=== PATIENT | male | born 1940 | race Two or more races ===

== ENCOUNTER → 2020-11-17 | Outpatient (CLI) | payer MEDICARE, BC ==
[~2020-11-17] MED LIST: ALLO100T PO; APIX2.5T MT; HYDR-4134 PO; LOSA100T32 PO; NEBI5TAB3 PO; OXYC-662 MT; TAMS-11 PO; TORS100T16 PO
== END | disposition home or self-care (01) ==
LOC: LAB 10:21
PROVIDERS: ATTEND Specialist
DX: Z01.812 Encounter for preprocedural laboratory examination (principal); R05 Cough; Z20.822 Contact with and (suspected) exposure to COVID-19
CPT/HCPCS: 87426

== ENCOUNTER → 2020-11-18 | Day surgery (SDC) | payer MEDICARE, BC ==
[~2020-11-18] VITALS: Ht 182.9 cm; Wt 69.9 kg
[~2020-11-18] MED LIST changes: +ASPIRIN/SOD BICARB/CITRIC ACID 324MG TAB EFF ONE; +FENTANYL CITRATE/PF 50MCG/ML 2ML VIAL ONE; +FENTANYL CITRATE/PF 50MCG/ML 5ML VIAL ONE; +HEPARIN SODIUM 1,000 UNIT/1ML VIAL IV ONE; +IODIXANOL 320MG/ML 200ML BOTTLE ONE; +LIDOCAINE HCL 1% 20ML VIAL (Pyxis) INJ ONE; +MIDAZOLAM HCL 2 MG/2 ML VIAL ONE; +NICARDIPINE 100MCG/ML 10ML VIAL (CATH LAB) IV ONE; +NITROGLYCERIN 50MCG/ML 10ML VIAL (CATH LAB) IV ONE
== END | disposition home or self-care (01) ==
LOC: CCL 09:27
PROVIDERS: ATTEND Specialist
DX: I25.10 Atherosclerotic heart disease of native coronary artery without angina pectoris (principal); Z79.899 Other long term (current) drug therapy; Z88.1 Allergy status to other antibiotic agents; Z88.8 Allergy status to other drugs, medicaments and biological substances; Z98.890 Other specified postprocedural states
CPT/HCPCS: 93005; 93458; C1769; C1887; C1893; J1644; J2250; J3010; J3490; Q9967

== ENCOUNTER 2021-07-08 20:04 | Inpatient (IN) | payer MEDICARE, BC ==
[~2021-07-08] VITALS: Ht 182.9 cm; Wt 75.5 kg
[~2021-07-08 20:04] MED LIST changes: +ASCO500C18 MT; -ASPIRIN/SOD BICARB/CITRIC ACID 324MG TAB EFF ONE; +CALC667C PO; +CHOL400D7 PO; +CYAN50003 MT; -FENTANYL CITRATE/PF 50MCG/ML 2ML VIAL ONE; -FENTANYL CITRATE/PF 50MCG/ML 5ML VIAL ONE; +FERR210T PO; +FOLI0.4T6 PO; +FOLI0.8C MT; -HEPARIN SODIUM 1,000 UNIT/1ML VIAL IV ONE; +HYDR-4134 MT; -HYDR-4134 PO; +HYDR-4135 PO; -IODIXANOL 320MG/ML 200ML BOTTLE ONE; +LANS30TA4 PO; -LIDOCAINE HCL 1% 20ML VIAL (Pyxis) INJ ONE; -MIDAZOLAM HCL 2 MG/2 ML VIAL ONE; -NICARDIPINE 100MCG/ML 10ML VIAL (CATH LAB) IV ONE; -NITROGLYCERIN 50MCG/ML 10ML VIAL (CATH LAB) IV ONE; +SEVE800T8 MT; +UMEC1DIS INH
[2021-07-08] MEDS ORDERED: IPRATROPIUM/ALBUTEROL 0.5-3(2.5)MG/3ML NEB HHN PRN (21:15)
[2021-07-08] MEDS ORDERED: CLONIDINE 0.1MG TABLET PO PRN (21:15)
[2021-07-08] MEDS ORDERED: ACETAMINOPHEN 325MG TABLET PO PRN (21:15)
[2021-07-08 22:00] VITALS: BP_SYST 115; BP_SYST 119; BP_DIAS 68; BP_DIAS 84
[2021-07-09] VITALS (12 sets, daily range): BP systolic 114–138; BP diastolic 54–87
[2021-07-09 00:15] LABS: BG BASE EXCESS 0.3 mmol/L (-2.0-2.0); BG CARBOXYHEMOGLOBIN 0.7 % (0.5-1.5); BG FRACTION INSPIRED OXYGEN 30; BG HCO3 ACT 25.7 mmol/L (22.0-26.0); BG METHEMOGLOBIN 0.2 % (0.0-1.5); BG OXYHEMOGLOBIN 97.1 % (94.0-97.0); BG PCO2 45.2 mmHg (35.0-45.0); BG PH 7.373 (7.350-7.450); BG PO2 123.6 mmHg (75.0-100.0); BG SAMPLE SITE LEFT RADIAL; BG TOTAL HEMOGLOBIN 8.5 g/dL (12.0-18.0); BG VENT MODE MASK - BIPAP
[2021-07-09] MEDS: HYDRALAZINE HCL 25MG TABLET PO SCH ×3 (08:00→22:13)
[2021-07-09] MEDS ORDERED: LOSARTAN POTASSIUM 25 MG TABLET PO SCH (09:00)
[2021-07-09] MEDS ORDERED: ERGOCALCIFEROL 50000UNITS CAPSULE PO SCH (09:00)
[2021-07-09] MEDS ORDERED: FUROSEMIDE 20MG TABLET PO SCH ×2 (09:00)
[2021-07-09 09:42] LABS: BG BASE EXCESS -1.2 mmol/L (-2.0-2.0); BG CARBOXYHEMOGLOBIN 1.8 % (0.5-1.5); BG DEOXYHEMOGLOBIN 1.8 % (0.0-5.0); BG FRACTION INSPIRED OXYGEN 28; BG HCO3 ACT 24.1 mmol/L (22.0-26.0); BG METHEMOGLOBIN 0.2 % (0.0-1.5); BG OXYGEN SATURATION 98.2 % (92.0-98.5); BG OXYHEMOGLOBIN 96.2 % (94.0-97.0); BG PCO2 42.8 mmHg (35.0-45.0); BG PH 7.368 (7.350-7.450); BG PO2 125.7 mmHg (75.0-100.0); BG SAMPLE SITE LEFT RADIAL; BG TOTAL HEMOGLOBIN 7.8 g/dL (12.0-18.0); BG VENT MODE NASAL CANNULA
[2021-07-09] MEDS: NEBIVOLOL HCL 5 MG TABLET PO SCH ×2 (09:54→20:38)
[2021-07-09] MEDS: APIXABAN 2.5 MG TABLET PO SCH ×2 (09:54→20:38)
[2021-07-09] MEDS: LOSARTAN POTASSIUM 25 MG TABLET PO SCH ×2 (09:54→20:39)
[2021-07-09] MEDS ORDERED: FUROSEMIDE 20MG/2ML VIAL IVP NR (10:15)
[2021-07-09 11:34] LABS: CHLORIDE 106 mEq/L (98-107)
[2021-07-09 11:43] LABS: HEMATOCRIT. 23.2 % (42.0-52.0); HEMOGLOBIN. 7.3 g/dL (14.0-18.0); MEAN CORPUSCULAR HEMOGLOBIN 37.2 pg (28.0-32.0); MEAN PLATELET VOLUME 9.1 fl (7.4-10.4); PLATELET 111 x1000/uL (130-400); RED BLOOD CELL COUNT 1.97 mill/uL (4.7-6.1); RED CELL DISTRIBUTION WIDTH 16.2 % (11.6-14.6)
[2021-07-09 12:45] LABS: PLATELET ESTIMATE SLIGHTLY DECREASED
[2021-07-09] MEDS ORDERED: FUROSEMIDE 40MG/4ML VIAL IVP NR (14:30)
[2021-07-09] MEDS: FAMOTIDINE 20MG TABLET PO SCH (20:39)
[2021-07-09] MEDS: TAMSULOSIN HCL 0.4MG SR CAPSULE PO SCH (20:39)
[2021-07-10] VITALS (11 sets, daily range): BP systolic 111–139; BP diastolic 45–74
[2021-07-10] MEDS: HYDRALAZINE HCL 25MG TABLET PO SCH ×3 (05:27→21:19)
[2021-07-10 07:26] LABS: HEMATOCRIT. 25.3 % (42.0-52.0); HEMOGLOBIN. 8.4 g/dL (14.0-18.0); MEAN CORPUSCULAR HEMOGLOBIN 36.6 pg (28.0-32.0); MEAN CORPUSCULAR VOLUME 110.7 fL (80.0-94.0); MEAN PLATELET VOLUME 8.6 fl (7.4-10.4); PLATELET 114 x1000/uL (130-400); RED BLOOD CELL COUNT 2.29 mill/uL (4.7-6.1); RED CELL DISTRIBUTION WIDTH 16.5 % (11.6-14.6)
[2021-07-10] MEDS: APIXABAN 2.5 MG TABLET PO SCH ×2 (08:36→17:27)
[2021-07-10] MEDS: DOCUSATE SODIUM SUGAR FREE 100MG/10ML UDC NG PRN (08:36)
[2021-07-10] MEDS: LOSARTAN POTASSIUM 25 MG TABLET PO SCH ×2 (08:37→17:27)
[2021-07-10] MEDS: NEBIVOLOL HCL 5 MG TABLET PO SCH ×2 (08:37→20:19)
[2021-07-10] MEDS ORDERED: FUROSEMIDE 40MG TABLET PO SCH (09:00)
[2021-07-10] MEDS ORDERED: FUROSEMIDE 40MG/4ML VIAL IVP SCH (09:15)
[2021-07-10 11:37] LABS: HEPATITIS B SURFACE ANTIGEN NEGATIVE
[2021-07-10] MEDS: FUROSEMIDE 40MG TABLET PO SCH (13:09)
[2021-07-10 14:05] LABS: NUCLEATED RED BLOOD CELLS 1 /100 WBC; PLATELET ESTIMATE SLIGHTLY DECREASED
[2021-07-10] MEDS ORDERED: FUROSEMIDE 40MG/4ML VIAL IVP NR (17:00)
[2021-07-10] MEDS: TAMSULOSIN HCL 0.4MG SR CAPSULE PO SCH (20:19)
[2021-07-10] MEDS: FAMOTIDINE 20MG TABLET PO SCH (20:19)
[2021-07-10] MEDS ORDERED: EPOETIN ALFA-EPBX 10,000 UNIT/ML VIAL SUBCUT SCH (21:00)
[2021-07-11] VITALS (11 sets, daily range): BP systolic 101–138; BP diastolic 43–81
[2021-07-11] MEDS: HYDRALAZINE HCL 25MG TABLET PO SCH ×3 (05:51→22:04)
[2021-07-11 08:34] LABS: BASOPHILS % 0.5 % (0.0-2.0); EOSINOPHILS % 1.3 % (0.0-5.0); HEMATOCRIT. 25.8 % (42.0-52.0); HEMOGLOBIN. 8.4 g/dL (14.0-18.0); LYMPHOCYTES % 8.1 % (20.0-50.0); MEAN CORPUSCULAR VOLUME 110.7 fL (80.0-94.0); MONOCYTES % 10.9 % (2.0-8.0); NEUTROPHILS % 79.2 % (40.0-76.0); PLATELET 104 x1000/uL (130-400); RED BLOOD CELL COUNT 2.33 mill/uL (4.7-6.1); RED CELL DISTRIBUTION WIDTH 17.4 % (11.6-14.6)
[2021-07-11] MEDS: DOCUSATE SODIUM SUGAR FREE 100MG/10ML UDC NG PRN (08:48)
[2021-07-11] MEDS: LOSARTAN POTASSIUM 25 MG TABLET PO SCH ×2 (08:49→17:53)
[2021-07-11] MEDS: FUROSEMIDE 40MG TABLET PO SCH (08:49)
[2021-07-11] MEDS: NEBIVOLOL HCL 5 MG TABLET PO SCH ×2 (08:50→20:59)
[2021-07-11] MEDS: APIXABAN 2.5 MG TABLET PO SCH ×2 (08:50→17:53)
[2021-07-11] MEDS ORDERED: ALUMINUM HYDROXIDE 120ML BOTTLE PO PRN (16:00)
[2021-07-11] MEDS ORDERED: FAMOTIDINE 20MG/2ML VIAL IV SCH (16:00)
[2021-07-11] MEDS: SEVELAMER CARBONATE 800 MG TABLET PO SCH (17:53)
[2021-07-11] MEDS ORDERED: MAGNESIUM/ALUMINUM HYDROXIDE/SIMETHICONE 30ML UDC PO NR (18:15)
[2021-07-11] MEDS ORDERED: CYAN500T9 PO (18:47)
[2021-07-11] MEDS: FAMOTIDINE 20MG TABLET PO SCH (20:58)
[2021-07-12] VITALS (12 sets, daily range): BP systolic 95–129; BP diastolic 47–80
[2021-07-12] MEDS: HYDRALAZINE HCL 25MG TABLET PO SCH ×3 (06:24→21:17)
[2021-07-12 06:31] LABS: BASOPHILS % 0.5 % (0.0-2.0); EOSINOPHILS % 1.4 % (0.0-5.0); HEMATOCRIT. 26.2 % (42.0-52.0); HEMOGLOBIN. 8.6 g/dL (14.0-18.0); LYMPHOCYTES % 7.9 % (20.0-50.0); MEAN CORPUSCULAR HEMOGLOBIN 36.4 pg (28.0-32.0); MEAN CORPUSCULAR VOLUME 110.5 fL (80.0-94.0); MONOCYTES % 10.2 % (2.0-8.0); PLATELET 98 x1000/uL (130-400); RED BLOOD CELL COUNT 2.37 mill/uL (4.7-6.1); RED CELL DISTRIBUTION WIDTH 17.4 % (11.6-14.6)
[2021-07-12] MEDS ORDERED: ALLOPURINOL 100 MG TABLET PO SCH (09:00)
[2021-07-12] MEDS ORDERED: FERRIC CITRATE 210 MG PO SCH (09:00)
[2021-07-12] MEDS ORDERED: TAMSULOSIN HCL 0.4MG SR CAPSULE PO SCH (09:00)
[2021-07-12] MEDS ORDERED: CYANOCOBALAMIN 1000MCG TABLET PO SCH (09:00)
[2021-07-12] MEDS ORDERED: ASCORBIC ACID 500 MG TABLET PO SCH (09:00)
[2021-07-12] MEDS ORDERED: FOLIC ACID MT SCH (09:00)
[2021-07-12] MEDS ORDERED: ASCORBIC ACID MT SCH (09:00)
[2021-07-12] MEDS ORDERED: TORSEMIDE PO SCH (09:00)
[2021-07-12] MEDS ORDERED: CALCIUM ACETATE 667MG CAPSULE PO SCH (09:00)
[2021-07-12] MEDS ORDERED: CYANOCOBALAMIN MT SCH (09:00)
[2021-07-12] MEDS ORDERED: [UNRECOGNIZED DRUG - OTHER] INH SCH (09:00)
[2021-07-12] MEDS ORDERED: CHOLECALCIFEROL PO SCH (09:00)
[2021-07-12] MEDS: APIXABAN 2.5 MG TABLET PO SCH ×2 (09:29→18:21)
[2021-07-12] MEDS: SEVELAMER CARBONATE 800 MG TABLET PO SCH ×3 (09:29→18:21)
[2021-07-12] MEDS: FUROSEMIDE 40MG TABLET PO SCH (09:30)
[2021-07-12] MEDS: NEBIVOLOL HCL 5 MG TABLET PO SCH ×2 (09:30→21:17)
[2021-07-12] MEDS: LOSARTAN POTASSIUM 25 MG TABLET PO SCH ×2 (09:31→16:46)
[2021-07-12] MEDS: FAMOTIDINE 20MG TABLET PO SCH (21:17)
[2021-07-13] MEDS ORDERED: EPOETIN ALFA-EPBX 10,000 UNIT/ML VIAL SUBCUT SCH (21:00)
== END 2021-07-12 22:05 | DRG 189 ==
LOC: 3WST 20:04
PROVIDERS: ADMIT Family Medicine Adult Medicine; ATTEND Family Medicine Adult Medicine
PROC: 5A09357 Assistance with Respiratory Ventilation, Less than 24 Consecutive Hours, Continuous Positive Airway Pressure (ICD-10-PCS; principal; 2021-07-08)
PROC: 5A1D70Z Performance of Urinary Filtration, Intermittent, Less than 6 Hours Per Day (ICD-10-PCS; 2021-07-08)
PROC: 5A1D70Z Performance of Urinary Filtration, Intermittent, Less than 6 Hours Per Day (ICD-10-PCS; 2021-07-09)
PROC: 5A1D70Z Performance of Urinary Filtration, Intermittent, Less than 6 Hours Per Day (ICD-10-PCS; 2021-07-10)
PROC: 5A1D70Z Performance of Urinary Filtration, Intermittent, Less than 6 Hours Per Day (ICD-10-PCS; 2021-07-12)
DX: J96.01 Acute respiratory failure with hypoxia (principal); N18.6 End stage renal disease; J18.9 Pneumonia, unspecified organism; I50.23 Acute on chronic systolic (congestive) heart failure; I13.2 Hypertensive heart and chronic kidney disease with heart failure and with stage 5 chronic kidney disease, or end stage renal disease; I47.1 Supraventricular tachycardia; I31.3 Pericardial effusion (noninflammatory); G93.40 Encephalopathy, unspecified; E87.2 Acidosis; J44.0 Chronic obstructive pulmonary disease with (acute) lower respiratory infection; I71.2 Thoracic aortic aneurysm, without rupture; I95.1 Orthostatic hypotension; M10.9 Gout, unspecified; M19.90 Unspecified osteoarthritis, unspecified site; Z96.651 Presence of right artificial knee joint; I48.91 Unspecified atrial fibrillation; I25.10 Atherosclerotic heart disease of native coronary artery without angina pectoris; E78.5 Hyperlipidemia, unspecified; I27.20 Pulmonary hypertension, unspecified; R26.9 Unspecified abnormalities of gait and mobility; D69.6 Thrombocytopenia, unspecified; D64.9 Anemia, unspecified; E87.5 Hyperkalemia; J96.02 Acute respiratory failure with hypercapnia; E55.9 Vitamin D deficiency, unspecified; R70.0 Elevated erythrocyte sedimentation rate; R79.82 Elevated C-reactive protein (CRP); C07 Malignant neoplasm of parotid gland; R53.81 Other malaise; C62.90 Malignant neoplasm of unspecified testis, unspecified whether descended or undescended; I08.3 Combined rheumatic disorders of mitral, aortic and tricuspid valves; Z85.47 Personal history of malignant neoplasm of testis; Z90.49 Acquired absence of other specified parts of digestive tract; Z92.3 Personal history of irradiation; Z99.2 Dependence on renal dialysis; I25.2 Old myocardial infarction; Z79.899 Other long term (current) drug therapy; Z79.01 Long term (current) use of anticoagulants; Z88.1 Allergy status to other antibiotic agents
CPT/HCPCS: 36415; 36600; 71045; 80048; 80053; 82375; 82805; 83735; 85025; 86705; 86709; 86803; 87340; 92610; 97162; 97166; J0885; J1940

== ENCOUNTER 2021-07-12 22:07 | Inpatient (IN) | payer MEDICARE, BC ==
[~2021-07-12] VITALS: Ht 182.9 cm; Wt 84.8 kg
[2021-07-12 22:07] VITALS: BP 118/63
[~2021-07-12 22:07] MED LIST changes: -CYAN50003 MT; +CYAN500T9 PO; -FOLI0.4T6 PO; -HYDR-4134 MT; -HYDR-4135 PO; -OXYC-662 MT
[2021-07-13] MEDS ORDERED: IPRATROPIUM/ALBUTEROL 0.5-3(2.5)MG/3ML NEB HHN PRN
[2021-07-13] MEDS ORDERED: CLONIDINE 0.1MG TABLET PO PRN
[2021-07-13] MEDS: HYDRALAZINE HCL 25MG TABLET PO SCH ×3 (05:55→22:00)
[2021-07-13 08:00] VITALS: BP 113/66
[2021-07-13] MEDS: CYANOCOBALAMIN 100MCG TABLET PO SCH (09:00)
[2021-07-13] MEDS: CALCIUM ACETATE 667MG CAPSULE PO SCH (09:00)
[2021-07-13] MEDS ORDERED: NON FORMULARY PATIENT HOME MED XX SCH (09:00)
[2021-07-13] MEDS ORDERED: NON FORMULARY PATIENT HOME MED PO SCH (09:00)
[2021-07-13 09:03] LABS: HEMATOCRIT. 28.9 % (42.0-52.0); HEMOGLOBIN. 9.1 g/dL (14.0-18.0); MEAN CORPUSCULAR VOLUME 114.3 fL (80.0-94.0); MEAN PLATELET VOLUME 8.9 fl (7.4-10.4); PLATELET 99 x1000/uL (130-400); RED BLOOD CELL COUNT 2.53 mill/uL (4.7-6.1); RED CELL DISTRIBUTION WIDTH 17.9 % (11.6-14.6)
[2021-07-13 09:13] LABS: CHLORIDE 105 mEq/L (98-107)
[2021-07-13] MEDS: SEVELAMER CARBONATE 800 MG TABLET PO SCH ×3 (09:37→17:03)
[2021-07-13] MEDS: NEBIVOLOL HCL 5 MG TABLET PO SCH ×2 (09:37→21:00)
[2021-07-13] MEDS: ALLOPURINOL 100 MG TABLET PO SCH (09:37)
[2021-07-13] MEDS: DOCUSATE SODIUM 100MG CAPSULE PO PRN (09:38)
[2021-07-13] MEDS: FUROSEMIDE 40MG TABLET PO SCH (09:38)
[2021-07-13] MEDS: TAMSULOSIN HCL 0.4MG SR CAPSULE PO SCH (09:38)
[2021-07-13] MEDS: LOSARTAN POTASSIUM 25 MG TABLET PO SCH ×2 (09:39→21:00)
[2021-07-13] MEDS: ASCORBIC ACID 500 MG TABLET PO SCH (09:39)
[2021-07-13] MEDS: APIXABAN 2.5 MG TABLET PO SCH ×2 (12:12→17:03)
[2021-07-13 14:03] LABS: PLATELET ESTIMATE SLIGHTLY DECREASED
[2021-07-13 14:43] LABS: HEPATITIS B SURFACE ANTIGEN NEGATIVE
[2021-07-13 20:00] VITALS: BP 127/49
[2021-07-13] MEDS ORDERED: EPOETIN ALFA-EPBX 10,000 UNIT/ML VIAL SUBCUT SCH (21:00)
[2021-07-14] MEDS: FAMOTIDINE 20MG TABLET PO SCH ×2 (00:05→20:43)
[2021-07-14] MEDS: HYDRALAZINE HCL 25MG TABLET PO SCH ×3 (05:40→21:51)
[2021-07-14 07:02] LABS: HEMATOCRIT. 26.9 % (42.0-52.0); HEMOGLOBIN. 8.5 g/dL (14.0-18.0); MEAN CORPUSCULAR HEMOGLOBIN 35.8 pg (28.0-32.0); MEAN CORPUSCULAR VOLUME 113.7 fL (80.0-94.0); MEAN PLATELET VOLUME 8.9 fl (7.4-10.4); PLATELET 87 x1000/uL (130-400); RED BLOOD CELL COUNT 2.37 mill/uL (4.7-6.1); RED CELL DISTRIBUTION WIDTH 18.1 % (11.6-14.6)
[2021-07-14 07:52] VITALS: BP 97/46
[2021-07-14] MEDS: SEVELAMER CARBONATE 800 MG TABLET PO SCH ×3 (08:13→17:31)
[2021-07-14] MEDS: APIXABAN 2.5 MG TABLET PO SCH ×2 (08:14→17:31)
[2021-07-14] MEDS: TAMSULOSIN HCL 0.4MG SR CAPSULE PO SCH (08:14)
[2021-07-14] MEDS: ASCORBIC ACID 500 MG TABLET PO SCH (08:14)
[2021-07-14] MEDS: ALLOPURINOL 100 MG TABLET PO SCH (08:14)
[2021-07-14] MEDS: FUROSEMIDE 40MG TABLET PO SCH (08:15)
[2021-07-14] MEDS: NEBIVOLOL HCL 5 MG TABLET PO SCH ×2 (08:16→20:43)
[2021-07-14] MEDS: CYANOCOBALAMIN 100MCG TABLET PO SCH (08:17)
[2021-07-14] MEDS: LOSARTAN POTASSIUM 25 MG TABLET PO SCH ×2 (08:17→20:42)
[2021-07-14] MEDS: CALCIUM ACETATE 667MG CAPSULE PO SCH (08:19)
[2021-07-14] MEDS: ACETAMINOPHEN 325MG TABLET PO PRN (08:30)
[2021-07-14] MEDS: LACTULOSE 20G/30ML UDC PO SCH ×3 (09:44→17:30)
[2021-07-14] MEDS: FERROUS SULFATE 325MG TABLET PO SCH (17:39)
[2021-07-14 19:33] LABS: PLATELET ESTIMATE DECREASED
[2021-07-14 20:00] VITALS: BP 118/51
[2021-07-14] MEDS: GUAIFENESIN 600MG ER TABLET PO SCH (20:43)
[2021-07-14] MEDS: EPOETIN ALFA-EPBX 10,000 UNIT/ML VIAL SUBCUT SCH (21:26)
[2021-07-14] MEDS: EPOETIN ALFA-EPBX 4,000 UNIT/ML VIAL SUBCUT SCH (21:27)
[2021-07-14 21:45] VITALS: BP 133/65
[2021-07-15] MEDS ORDERED: NA PHOS,M-B/NA PHOS,DI-BA ENEMA 118ML PR SCH (00:15)
[2021-07-15 05:41] VITALS: BP_SYST 122; BP_DIAS 48; BP_DIAS 64
[2021-07-15] MEDS: HYDRALAZINE HCL 25MG TABLET PO SCH ×3 (05:47→22:00)
[2021-07-15 07:42] LABS: BASOPHILS % 0.5 % (0.0-2.0); EOSINOPHILS % 1.3 % (0.0-5.0); HEMATOCRIT. 26.5 % (42.0-52.0); HEMOGLOBIN. 8.4 g/dL (14.0-18.0); LYMPHOCYTES % 8.6 % (20.0-50.0); MEAN CORPUSCULAR HEMOGLOBIN 35.9 pg (28.0-32.0); MEAN CORPUSCULAR VOLUME 113.5 fL (80.0-94.0); MONOCYTES % 11.4 % (2.0-8.0); NEUTROPHILS % 78.2 % (40.0-76.0); PLATELET 88 x1000/uL (130-400); RED BLOOD CELL COUNT 2.33 mill/uL (4.7-6.1); RED CELL DISTRIBUTION WIDTH 17.8 % (11.6-14.6)
[2021-07-15 08:22] VITALS: BP 114/54
[2021-07-15] MEDS: APIXABAN 2.5 MG TABLET PO SCH (09:11)
[2021-07-15] MEDS: ALLOPURINOL 100 MG TABLET PO SCH (09:11)
[2021-07-15] MEDS: SEVELAMER CARBONATE 800 MG TABLET PO SCH ×5 (09:11→17:08)
[2021-07-15] MEDS: TAMSULOSIN HCL 0.4MG SR CAPSULE PO SCH (09:12)
[2021-07-15] MEDS: FERROUS SULFATE 325MG TABLET PO SCH ×2 (09:12→17:08)
[2021-07-15] MEDS: GUAIFENESIN 600MG ER TABLET PO SCH ×2 (09:12→21:19)
[2021-07-15] MEDS: LOSARTAN POTASSIUM 25 MG TABLET PO SCH ×2 (09:13→21:00)
[2021-07-15] MEDS: NEBIVOLOL HCL 5 MG TABLET PO SCH ×2 (09:13→21:00)
[2021-07-15] MEDS: ASCORBIC ACID 500 MG TABLET PO SCH (09:13)
[2021-07-15] MEDS: FUROSEMIDE 40MG TABLET PO SCH (09:13)
[2021-07-15] MEDS: CALCIUM ACETATE 667MG CAPSULE PO SCH (09:13)
[2021-07-15] MEDS: LACTULOSE 20G/30ML UDC PO SCH ×5 (09:14→17:08)
[2021-07-15] MEDS: CYANOCOBALAMIN 100MCG TABLET PO SCH (09:40)
[2021-07-15] MEDS: ACETAMINOPHEN 325MG TABLET PO PRN (09:40)
[2021-07-15 12:02] LABS: TOTAL IRON BINDING CAPACITY 195 ug/dL (250-450)
[2021-07-15 12:19] LABS: VITAMIN B12 SERUM 1925 pg/mL (211-911)
[2021-07-15 20:00] VITALS: BP 121/79
[2021-07-15] MEDS: FAMOTIDINE 20MG TABLET PO SCH (21:19)
[2021-07-16] MEDS: HYDRALAZINE HCL 25MG TABLET PO SCH ×3 (05:44→22:00)
[2021-07-16 06:21] LABS: BASOPHILS % 0.4 % (0.0-2.0); EOSINOPHILS % 1.5 % (0.0-5.0); HEMATOCRIT. 25.7 % (42.0-52.0); HEMOGLOBIN. 8.2 g/dL (14.0-18.0); LYMPHOCYTES % 10.2 % (20.0-50.0); MEAN CORPUSCULAR HEMOGLOBIN 36.3 pg (28.0-32.0); MEAN CORPUSCULAR VOLUME 114.1 fL (80.0-94.0); NEUTROPHILS % 76.9 % (40.0-76.0); PLATELET 86 x1000/uL (130-400); RED BLOOD CELL COUNT 2.26 mill/uL (4.7-6.1); RED CELL DISTRIBUTION WIDTH 17.7 % (11.6-14.6)
[2021-07-16 08:06] VITALS: BP 111/44
[2021-07-16] MEDS: CALCIUM ACETATE 667MG CAPSULE PO SCH (08:23)
[2021-07-16] MEDS: FERROUS SULFATE 325MG TABLET PO SCH ×2 (08:24→16:08)
[2021-07-16] MEDS: ERGOCALCIFEROL 50000UNITS CAPSULE PO SCH (08:24)
[2021-07-16] MEDS: ASCORBIC ACID 500 MG TABLET PO SCH (08:24)
[2021-07-16] MEDS: ALLOPURINOL 100 MG TABLET PO SCH (08:24)
[2021-07-16] MEDS: CYANOCOBALAMIN 100MCG TABLET PO SCH (08:25)
[2021-07-16] MEDS: FUROSEMIDE 40MG TABLET PO SCH (08:25)
[2021-07-16] MEDS: SEVELAMER CARBONATE 800 MG TABLET PO SCH ×3 (08:25→16:08)
[2021-07-16] MEDS: TAMSULOSIN HCL 0.4MG SR CAPSULE PO SCH (08:25)
[2021-07-16] MEDS: DOCUSATE SODIUM 100MG CAPSULE PO PRN (08:25)
[2021-07-16] MEDS: GUAIFENESIN 600MG ER TABLET PO SCH ×3 (08:25→21:00)
[2021-07-16] MEDS: NEBIVOLOL HCL 5 MG TABLET PO SCH ×2 (08:26→21:00)
[2021-07-16] MEDS: LACTULOSE 20G/30ML UDC PO SCH ×3 (08:26→16:12)
[2021-07-16] MEDS: LOSARTAN POTASSIUM 25 MG TABLET PO SCH ×2 (08:26→21:00)
[2021-07-16] MEDS: APIXABAN 2.5 MG TABLET PO SCH (16:08)
[2021-07-16] MEDS ORDERED: HYDR-4135 PO (19:02)
[2021-07-16] MEDS ORDERED: ALLO100T PO (19:02)
[2021-07-16] MEDS ORDERED: HYDR-4134 MT (19:05)
[2021-07-16] MEDS ORDERED: FOLI0.4T6 PO (19:05)
[2021-07-16 20:00] VITALS: BP 106/49
[2021-07-16] MEDS: SENNOSIDES/DOCUSATE SOD 8.6/50MG TABLET PO SCH ×2 (20:59→21:00)
[2021-07-17] MEDS: HYDRALAZINE HCL 25MG TABLET PO SCH ×3 (06:00→20:54)
[2021-07-17] MEDS: EPOETIN ALFA-EPBX 10,000 UNIT/ML VIAL SUBCUT SCH (06:23)
[2021-07-17] MEDS: EPOETIN ALFA-EPBX 4,000 UNIT/ML VIAL SUBCUT SCH (06:24)
[2021-07-17 08:00] VITALS: BP 110/53
[2021-07-17] MEDS: SEVELAMER CARBONATE 800 MG TABLET PO SCH ×2 (09:00→12:14)
[2021-07-17] MEDS: LOSARTAN POTASSIUM 25 MG TABLET PO SCH ×2 (09:00→20:54)
[2021-07-17] MEDS: NEBIVOLOL HCL 5 MG TABLET PO SCH ×2 (09:00→20:52)
[2021-07-17] MEDS: FUROSEMIDE 40MG TABLET PO SCH (09:52)
[2021-07-17] MEDS: GUAIFENESIN 600MG ER TABLET PO SCH ×2 (09:52→20:52)
[2021-07-17] MEDS: ASCORBIC ACID 500 MG TABLET PO SCH (09:52)
[2021-07-17] MEDS: ALLOPURINOL 100 MG TABLET PO SCH (09:52)
[2021-07-17] MEDS: FERROUS SULFATE 325MG TABLET PO SCH ×2 (09:52→17:25)
[2021-07-17] MEDS: APIXABAN 2.5 MG TABLET PO SCH ×2 (09:53→17:25)
[2021-07-17] MEDS: CALCIUM ACETATE 667MG CAPSULE PO SCH (09:53)
[2021-07-17] MEDS: TAMSULOSIN HCL 0.4MG SR CAPSULE PO SCH (09:54)
[2021-07-17] MEDS: LACTULOSE 20G/30ML UDC PO SCH ×4 (09:54→17:24)
[2021-07-17] MEDS: CYANOCOBALAMIN 100MCG TABLET PO SCH (09:54)
[2021-07-17] MEDS: DOCUSATE SODIUM SUGAR FREE 100MG/10ML UDC PO SCH (09:55)
[2021-07-17 11:47] LABS: BASOPHILS % 0.6 % (0.0-2.0); EOSINOPHILS % 2.1 % (0.0-5.0); HEMATOCRIT. 27.5 % (42.0-52.0); HEMOGLOBIN. 8.6 g/dL (14.0-18.0); LYMPHOCYTES % 10.5 % (20.0-50.0); MEAN CORPUSCULAR HEMOGLOBIN 35.9 pg (28.0-32.0); MEAN CORPUSCULAR VOLUME 114.4 fL (80.0-94.0); MEAN PLATELET VOLUME 9.2 fl (7.4-10.4); MONOCYTES % 9.5 % (2.0-8.0); NEUTROPHILS % 77.3 % (40.0-76.0); PLATELET 93 x1000/uL (130-400); RED CELL DISTRIBUTION WIDTH 18.4 % (11.6-14.6)
[2021-07-17 12:01] LABS: PHOSPHORUS 2.5 mg/dL (2.5-4.9)
[2021-07-17 20:00] VITALS: BP_SYST 119; BP_SYST 96; BP_DIAS 46; BP_DIAS 75
[2021-07-17] MEDS: SENNOSIDES/DOCUSATE SOD 8.6/50MG TABLET PO SCH (20:52)
[2021-07-17 22:21] LABS: HEPATITIS B SURFACE ANTIGEN NEGATIVE
[2021-07-18] MEDS: HYDRALAZINE HCL 25MG TABLET PO SCH ×3 (05:14→23:00)
[2021-07-18 06:54] LABS: BASOPHILS % 0.5 % (0.0-2.0); EOSINOPHILS % 1.9 % (0.0-5.0); HEMATOCRIT. 26.7 % (42.0-52.0); HEMOGLOBIN. 8.5 g/dL (14.0-18.0); LYMPHOCYTES % 11.4 % (20.0-50.0); MEAN CORPUSCULAR HEMOGLOBIN 36.3 pg (28.0-32.0); MEAN CORPUSCULAR VOLUME 114.5 fL (80.0-94.0); MEAN PLATELET VOLUME 9.5 fl (7.4-10.4); NEUTROPHILS % 75.2 % (40.0-76.0); PLATELET 89 x1000/uL (130-400); RED BLOOD CELL COUNT 2.33 mill/uL (4.7-6.1); RED CELL DISTRIBUTION WIDTH 17.7 % (11.6-14.6)
[2021-07-18 08:00] VITALS: BP 125/57
[2021-07-18] MEDS: DOCUSATE SODIUM SUGAR FREE 100MG/10ML UDC PO SCH ×2 (09:00→09:45)
[2021-07-18] MEDS: LOSARTAN POTASSIUM 25 MG TABLET PO SCH ×2 (09:00→23:00)
[2021-07-18] MEDS: ASCORBIC ACID 500 MG TABLET PO SCH (09:00)
[2021-07-18] MEDS: NEBIVOLOL HCL 5 MG TABLET PO SCH (09:00)
[2021-07-18] MEDS: GUAIFENESIN 600MG ER TABLET PO SCH (09:44)
[2021-07-18] MEDS: FUROSEMIDE 40MG TABLET PO SCH ×2 (09:44→17:34)
[2021-07-18] MEDS: FERROUS SULFATE 325MG TABLET PO SCH ×2 (09:44→17:34)
[2021-07-18] MEDS: APIXABAN 2.5 MG TABLET PO SCH ×2 (09:44→17:34)
[2021-07-18] MEDS: ALLOPURINOL 100 MG TABLET PO SCH (09:44)
[2021-07-18] MEDS: CYANOCOBALAMIN 100MCG TABLET PO SCH (09:45)
[2021-07-18] MEDS: TAMSULOSIN HCL 0.4MG SR CAPSULE PO SCH (09:45)
[2021-07-18 20:00] VITALS: BP 99/48
[2021-07-18] MEDS: SENNOSIDES/DOCUSATE SOD 8.6/50MG TABLET PO SCH (23:00)
[2021-07-19] MEDS: GUAIFENESIN 600MG ER TABLET PO SCH ×2 (01:18→09:00)
[2021-07-19] MEDS: EPOETIN ALFA-EPBX 4,000 UNIT/ML VIAL SUBCUT SCH (01:19)
[2021-07-19] MEDS: EPOETIN ALFA-EPBX 10,000 UNIT/ML VIAL SUBCUT SCH (01:20)
[2021-07-19] MEDS: NEBIVOLOL HCL 5 MG TABLET PO SCH ×3 (01:21→22:16)
[2021-07-19] MEDS: HYDRALAZINE HCL 25MG TABLET PO SCH (06:00)
[2021-07-19] MEDS: FUROSEMIDE 40MG TABLET PO SCH ×2 (06:44→17:49)
[2021-07-19 08:00] VITALS: BP 99/50
[2021-07-19] MEDS: DOCUSATE SODIUM SUGAR FREE 100MG/10ML UDC PO SCH (09:00)
[2021-07-19] MEDS: FERROUS SULFATE 325MG TABLET PO SCH ×2 (09:00→17:49)
[2021-07-19] MEDS: LOSARTAN POTASSIUM 25 MG TABLET PO SCH (09:00)
[2021-07-19] MEDS: APIXABAN 2.5 MG TABLET PO SCH ×2 (09:00→17:49)
[2021-07-19] MEDS: ASCORBIC ACID 500 MG TABLET PO SCH (12:55)
[2021-07-19] MEDS: CYANOCOBALAMIN 100MCG TABLET PO SCH (12:55)
[2021-07-19] MEDS: ALLOPURINOL 100 MG TABLET PO SCH (12:56)
[2021-07-19] MEDS: TAMSULOSIN HCL 0.4MG SR CAPSULE PO SCH (12:56)
[2021-07-19 20:00] VITALS: BP 132/59
[2021-07-19] MEDS: SENNOSIDES/DOCUSATE SOD 8.6/50MG TABLET PO SCH (22:16)
[2021-07-19] MEDS: LACTULOSE 20G/30ML UDC PO SCH (22:16)
[2021-07-20] MEDS: GUAIFENESIN 600MG ER TABLET PO SCH ×2 (00:38→21:10)
[2021-07-20] MEDS: LACTULOSE 20G/30ML UDC PO SCH ×3 (05:49→21:13)
[2021-07-20 07:51] LABS: T4 FREE 0.85 ng/dL (0.76-1.46)
[2021-07-20 08:00] VITALS: BP 110/80
[2021-07-20 08:09] LABS: FOLIC ACID (FOLATE) SERUM 7.1 ng/mL (>5.38)
[2021-07-20] MEDS: DOCUSATE SODIUM SUGAR FREE 100MG/10ML UDC PO SCH ×2 (09:00→09:11)
[2021-07-20] MEDS: NEBIVOLOL HCL 5 MG TABLET PO SCH ×2 (09:00→21:12)
[2021-07-20] MEDS: ALLOPURINOL 100 MG TABLET PO SCH (09:10)
[2021-07-20] MEDS: ASCORBIC ACID 500 MG TABLET PO SCH (09:10)
[2021-07-20] MEDS: APIXABAN 2.5 MG TABLET PO SCH ×2 (09:10→16:53)
[2021-07-20] MEDS: FUROSEMIDE 40MG TABLET PO SCH (09:10)
[2021-07-20] MEDS: FERROUS SULFATE 325MG TABLET PO SCH ×2 (09:10→16:53)
[2021-07-20] MEDS: CYANOCOBALAMIN 100MCG TABLET PO SCH (09:27)
[2021-07-20] MEDS: SPIRONOLACTONE 25MG TABLET PO SCH (16:54)
[2021-07-20 20:00] VITALS: BP 120/51
[2021-07-20] MEDS: SENNOSIDES/DOCUSATE SOD 8.6/50MG TABLET PO SCH (21:10)
[2021-07-21] MEDS: LACTULOSE 20G/30ML UDC PO SCH ×3 (05:58→22:00)
[2021-07-21 06:54] LABS: BASOPHILS % 0.4 % (0.0-2.0); EOSINOPHILS % 1.4 % (0.0-5.0); HEMATOCRIT. 26.7 % (42.0-52.0); HEMOGLOBIN. 8.6 g/dL (14.0-18.0); LYMPHOCYTES % 9.9 % (20.0-50.0); MEAN CORPUSCULAR VOLUME 114.5 fL (80.0-94.0); MEAN PLATELET VOLUME 9.6 fl (7.4-10.4); MONOCYTES % 10.7 % (2.0-8.0); NEUTROPHILS % 77.6 % (40.0-76.0); PLATELET 91 x1000/uL (130-400); RED BLOOD CELL COUNT 2.33 mill/uL (4.7-6.1); RED CELL DISTRIBUTION WIDTH 18.1 % (11.6-14.6)
[2021-07-21 08:05] VITALS: BP 96/47
[2021-07-21] MEDS: DOCUSATE SODIUM SUGAR FREE 100MG/10ML UDC PO SCH ×2 (09:00→09:23)
[2021-07-21] MEDS: NEBIVOLOL HCL 5 MG TABLET PO SCH (09:00)
[2021-07-21] MEDS: ASCORBIC ACID 500 MG TABLET PO SCH (09:21)
[2021-07-21] MEDS: APIXABAN 2.5 MG TABLET PO SCH ×2 (09:21→18:22)
[2021-07-21] MEDS: GUAIFENESIN 600MG ER TABLET PO SCH ×2 (09:21→22:32)
[2021-07-21] MEDS: FERROUS SULFATE 325MG TABLET PO SCH ×2 (09:22→18:22)
[2021-07-21] MEDS: ALLOPURINOL 100 MG TABLET PO SCH (09:23)
[2021-07-21] MEDS: FUROSEMIDE 40MG TABLET PO SCH (09:23)
[2021-07-21] MEDS: CYANOCOBALAMIN 100MCG TABLET PO SCH (09:23)
[2021-07-21] MEDS: SPIRONOLACTONE 25MG TABLET PO SCH (09:48)
[2021-07-21] MEDS: LEVOTHYROXINE SODIUM 25MCG TABLET PO SCH (13:54)
[2021-07-21 14:11] LABS: HEPATITIS B SURFACE ANTIGEN NEGATIVE
[2021-07-21 20:00] VITALS: BP 104/48
[2021-07-21] MEDS: SENNOSIDES/DOCUSATE SOD 8.6/50MG TABLET PO SCH (21:00)
[2021-07-22] MEDS: LACTULOSE 20G/30ML UDC PO SCH ×3 (06:00→21:03)
[2021-07-22] MEDS: LEVOTHYROXINE SODIUM 25MCG TABLET PO SCH (06:36)
[2021-07-22 08:07] VITALS: BP 117/85
[2021-07-22] MEDS: ASCORBIC ACID 500 MG TABLET PO SCH (10:10)
[2021-07-22] MEDS: DOCUSATE SODIUM SUGAR FREE 100MG/10ML UDC PO SCH (10:10)
[2021-07-22] MEDS: SPIRONOLACTONE 25MG TABLET PO SCH (10:12)
[2021-07-22] MEDS: FERROUS SULFATE 325MG TABLET PO SCH ×2 (10:13→17:28)
[2021-07-22] MEDS: APIXABAN 2.5 MG TABLET PO SCH ×2 (10:13→17:28)
[2021-07-22] MEDS: FUROSEMIDE 40MG TABLET PO SCH (10:14)
[2021-07-22] MEDS: NEBIVOLOL HCL 5 MG TABLET PO SCH (10:26)
[2021-07-22] MEDS: ALLOPURINOL 100 MG TABLET PO SCH (10:26)
[2021-07-22] MEDS: GUAIFENESIN 600MG ER TABLET PO SCH ×2 (10:37→21:03)
[2021-07-22] MEDS: CYANOCOBALAMIN 100MCG TABLET PO SCH (10:54)
[2021-07-22 20:00] VITALS: BP 118/51
[2021-07-22] MEDS: SENNOSIDES/DOCUSATE SOD 8.6/50MG TABLET PO SCH (21:03)
[2021-07-23] MEDS: LACTULOSE 20G/30ML UDC PO SCH ×3 (05:57→23:13)
[2021-07-23] MEDS ORDERED: LACTULOSE 20G/30ML UDC PO SCH (06:00)
[2021-07-23] MEDS: LEVOTHYROXINE SODIUM 25MCG TABLET PO SCH (06:08)
[2021-07-23] MEDS: NEBIVOLOL HCL 5 MG TABLET PO SCH (09:00)
[2021-07-23] MEDS: DOCUSATE SODIUM SUGAR FREE 100MG/10ML UDC PO SCH (10:18)
[2021-07-23] MEDS: SPIRONOLACTONE 25MG TABLET PO SCH (10:20)
[2021-07-23] MEDS: FUROSEMIDE 40MG TABLET PO SCH (10:24)
[2021-07-23] MEDS: FERROUS SULFATE 325MG TABLET PO SCH ×2 (10:24→17:00)
[2021-07-23] MEDS: GUAIFENESIN 600MG ER TABLET PO SCH ×2 (10:25→23:04)
[2021-07-23] MEDS: ERGOCALCIFEROL 50000UNITS CAPSULE PO SCH (10:26)
[2021-07-23] MEDS: CYANOCOBALAMIN 100MCG TABLET PO SCH (10:26)
[2021-07-23] MEDS: ASCORBIC ACID 500 MG TABLET PO SCH (10:26)
[2021-07-23] MEDS: ALLOPURINOL 100 MG TABLET PO SCH (10:27)
[2021-07-23] MEDS: APIXABAN 2.5 MG TABLET PO SCH ×2 (10:28→18:08)
[2021-07-23 20:00] VITALS: BP 98/45
[2021-07-23] MEDS ORDERED: EPOETIN ALFA-EPBX 10,000 UNIT/ML VIAL SUBCUT SCH (21:00)
[2021-07-23] MEDS: SENNOSIDES/DOCUSATE SOD 8.6/50MG TABLET PO SCH (23:04)
[2021-07-23] MEDS: EPOETIN ALFA-EPBX 4,000 UNIT/ML VIAL SUBCUT SCH (23:05)
[2021-07-23] MEDS: EPOETIN ALFA-EPBX 10,000 UNIT/ML VIAL SUBCUT SCH (23:06)
[2021-07-24] MEDS: LEVOTHYROXINE SODIUM 25MCG TABLET PO SCH (06:18)
[2021-07-24] MEDS: LACTULOSE 20G/30ML UDC PO SCH ×3 (06:18→22:00)
[2021-07-24 08:00] VITALS: BP 120/55
[2021-07-24] MEDS: SPIRONOLACTONE 25MG TABLET PO SCH (08:39)
[2021-07-24] MEDS: GUAIFENESIN 600MG ER TABLET PO SCH ×2 (08:40→20:09)
[2021-07-24] MEDS: FERROUS SULFATE 325MG TABLET PO SCH ×2 (08:40→18:12)
[2021-07-24] MEDS: FUROSEMIDE 40MG TABLET PO SCH (08:40)
[2021-07-24] MEDS: ALLOPURINOL 100 MG TABLET PO SCH (08:40)
[2021-07-24] MEDS: CYANOCOBALAMIN 100MCG TABLET PO SCH (08:40)
[2021-07-24] MEDS: DOCUSATE SODIUM SUGAR FREE 100MG/10ML UDC PO SCH (08:40)
[2021-07-24] MEDS: ASCORBIC ACID 500 MG TABLET PO SCH (08:40)
[2021-07-24] MEDS: NEBIVOLOL HCL 5 MG TABLET PO SCH (08:41)
[2021-07-24] MEDS: APIXABAN 2.5 MG TABLET PO SCH ×2 (08:42→18:12)
[2021-07-24 10:39] LABS: HEMATOCRIT. 32.1 % (42.0-52.0); HEMOGLOBIN. 9.7 g/dL (14.0-18.0); MEAN CORPUSCULAR HEMOGLOBIN 36.2 pg (28.0-32.0); MEAN CORPUSCULAR VOLUME 120.5 fL (80.0-94.0); MEAN PLATELET VOLUME 9.6 fl (7.4-10.4); PLATELET 114 x1000/uL (130-400); RED BLOOD CELL COUNT 2.67 mill/uL (4.7-6.1)
[2021-07-24 12:45] LABS: NUCLEATED RED BLOOD CELLS 4 /100 WBC
[2021-07-24 12:47] LABS: PLATELET ESTIMATE SLIGHTLY DECREASED
[2021-07-24 13:44] LABS: BG BASE EXCESS 0.4 mmol/L (-2.0-2.0); BG CARBOXYHEMOGLOBIN 0.7 % (0.5-1.5); BG DEOXYHEMOGLOBIN 1.3 % (0.0-5.0); BG FRACTION INSPIRED OXYGEN 28; BG HCO3 ACT 26.9 mmol/L (22.0-26.0); BG METHEMOGLOBIN 0.3 % (0.0-1.5); BG OXYGEN SATURATION 98.7 % (92.0-98.5); BG OXYHEMOGLOBIN 97.7 % (94.0-97.0); BG PCO2 52.7 mmHg (35.0-45.0); BG PH 7.325 (7.350-7.450); BG PO2 148.7 mmHg (75.0-100.0); BG SAMPLE SITE UAC; BG TOTAL HEMOGLOBIN 9.4 g/dL (12.0-18.0); BG VENT MODE NASAL CANNULA
[2021-07-24 18:10] LABS: BG BASE EXCESS 0.3 mmol/L (-2.0-2.0); BG CARBOXYHEMOGLOBIN 0.7 % (0.5-1.5); BG DEOXYHEMOGLOBIN 3.9 % (0.0-5.0); BG FRACTION INSPIRED OXYGEN 21; BG HCO3 ACT 26.6 mmol/L (22.0-26.0); BG METHEMOGLOBIN 0.3 % (0.0-1.5); BG OXYGEN SATURATION 96.1 % (92.0-98.5); BG OXYHEMOGLOBIN 95.1 % (94.0-97.0); BG PH 7.335 (7.350-7.450); BG PO2 85.1 mmHg (75.0-100.0); BG SAMPLE SITE RIGHT RADIAL; BG TOTAL HEMOGLOBIN 9.7 g/dL (12.0-18.0); BG VENT MODE ROOM AIR
[2021-07-24] MEDS: NYSTATIN POWDER 15GM TOP SCH (18:59)
[2021-07-24] MEDS ORDERED: NA PHOS,M-B/NA PHOS,DI-BA ENEMA 118ML PR NR (19:30)
[2021-07-24 20:00] VITALS: BP 134/59
[2021-07-24] MEDS: SENNOSIDES/DOCUSATE SOD 8.6/50MG TABLET PO SCH (20:09)
[2021-07-24 21:39] LABS: HEPATITIS B SURFACE ANTIGEN NEGATIVE
[2021-07-25] MEDS: LEVOTHYROXINE SODIUM 25MCG TABLET PO SCH (06:10)
[2021-07-25] MEDS: LACTULOSE 20G/30ML UDC PO SCH ×3 (06:10→21:28)
[2021-07-25 07:34] LABS: BASOPHILS % 0.5 % (0.0-2.0); EOSINOPHILS % 0.7 % (0.0-5.0); HEMATOCRIT. 30.1 % (42.0-52.0); HEMOGLOBIN. 9.4 g/dL (14.0-18.0); LYMPHOCYTES % 7.1 % (20.0-50.0); MEAN CORPUSCULAR HEMOGLOBIN 36.7 pg (28.0-32.0); MEAN PLATELET VOLUME 9.7 fl (7.4-10.4); MONOCYTES % 8.2 % (2.0-8.0); NEUTROPHILS % 83.5 % (40.0-76.0); PLATELET 94 x1000/uL (130-400); RED BLOOD CELL COUNT 2.57 mill/uL (4.7-6.1)
[2021-07-25 08:27] VITALS: BP 117/57
[2021-07-25] MEDS: NEBIVOLOL HCL 5 MG TABLET PO SCH (09:00)
[2021-07-25] MEDS: CYANOCOBALAMIN 100MCG TABLET PO SCH (09:11)
[2021-07-25] MEDS: GUAIFENESIN 600MG ER TABLET PO SCH ×2 (09:12→20:46)
[2021-07-25] MEDS: ASCORBIC ACID 500 MG TABLET PO SCH (09:13)
[2021-07-25] MEDS: SPIRONOLACTONE 25MG TABLET PO SCH (09:13)
[2021-07-25] MEDS: ALLOPURINOL 100 MG TABLET PO SCH (09:13)
[2021-07-25] MEDS: FUROSEMIDE 40MG TABLET PO SCH (09:13)
[2021-07-25] MEDS: APIXABAN 2.5 MG TABLET PO SCH ×2 (09:13→17:51)
[2021-07-25] MEDS: FERROUS SULFATE 325MG TABLET PO SCH ×2 (09:13→17:51)
[2021-07-25] MEDS: DOCUSATE SODIUM SUGAR FREE 100MG/10ML UDC PO SCH (09:14)
[2021-07-25] MEDS: NYSTATIN POWDER 15GM TOP SCH ×3 (09:59→17:53)
[2021-07-25] MEDS ORDERED: FERR-63 PO (19:18)
[2021-07-25] MEDS ORDERED: APIX2.5T PO (19:18)
[2021-07-25] MEDS ORDERED: NEBI5TAB3 PO (19:18)
[2021-07-25] MEDS ORDERED: LEVO25TA7 PO (19:18)
[2021-07-25] MEDS ORDERED: ALLO100T PO (19:18)
[2021-07-25] MEDS ORDERED: SPIR25TA PO (19:18)
[2021-07-25] MEDS ORDERED: FURO40TA5 PO (19:18)
[2021-07-25] MEDS: SENNOSIDES/DOCUSATE SOD 8.6/50MG TABLET PO SCH (20:46)
[2021-07-25] MEDS: EPOETIN ALFA-EPBX 4,000 UNIT/ML VIAL SUBCUT SCH (20:47)
[2021-07-25] MEDS: EPOETIN ALFA-EPBX 10,000 UNIT/ML VIAL SUBCUT SCH (20:47)
[2021-07-26] MEDS: LACTULOSE 20G/30ML UDC PO SCH ×3 (06:00→22:00)
[2021-07-26] MEDS: LEVOTHYROXINE SODIUM 25MCG TABLET PO SCH (06:09)
[2021-07-26 07:42] LABS: HEMATOCRIT. 28.7 % (42.0-52.0); HEMOGLOBIN. 9.2 g/dL (14.0-18.0); MEAN CORPUSCULAR HEMOGLOBIN 36.8 pg (28.0-32.0); MEAN CORPUSCULAR VOLUME 115.5 fL (80.0-94.0); MEAN PLATELET VOLUME 10.3 fl (7.4-10.4); PLATELET 82 x1000/uL (130-400); RED BLOOD CELL COUNT 2.49 mill/uL (4.7-6.1)
[2021-07-26 08:00] VITALS: BP 10/52
[2021-07-26] MEDS: SPIRONOLACTONE 25MG TABLET PO SCH (09:00)
[2021-07-26] MEDS: NEBIVOLOL HCL 5 MG TABLET PO SCH (09:00)
[2021-07-26] MEDS: FUROSEMIDE 40MG TABLET PO SCH (09:00)
[2021-07-26] MEDS: CYANOCOBALAMIN 100MCG TABLET PO SCH (10:31)
[2021-07-26] MEDS: ALLOPURINOL 100 MG TABLET PO SCH (10:31)
[2021-07-26] MEDS: DOCUSATE SODIUM SUGAR FREE 100MG/10ML UDC PO SCH (10:31)
[2021-07-26] MEDS: FERROUS SULFATE 325MG TABLET PO SCH ×2 (10:32→17:36)
[2021-07-26] MEDS: GUAIFENESIN 600MG ER TABLET PO SCH ×2 (10:32→20:24)
[2021-07-26] MEDS: ASCORBIC ACID 500 MG TABLET PO SCH (10:32)
[2021-07-26] MEDS: APIXABAN 2.5 MG TABLET PO SCH (10:32)
[2021-07-26] MEDS: NYSTATIN POWDER 15GM TOP SCH ×3 (10:33→17:36)
[2021-07-26 13:27] LABS: PLATELET ESTIMATE DECREASED
[2021-07-26 20:00] VITALS: BP 118/40
[2021-07-26] MEDS: SENNOSIDES/DOCUSATE SOD 8.6/50MG TABLET PO SCH (20:24)
[2021-07-27] MEDS: LEVOTHYROXINE SODIUM 25MCG TABLET PO SCH (06:14)
[2021-07-27] MEDS: LACTULOSE 20G/30ML UDC PO SCH (06:14)
[2021-07-27 06:34] LABS: HEMATOCRIT. 30.4 % (42.0-52.0); HEMOGLOBIN. 9.5 g/dL (14.0-18.0); MEAN CORPUSCULAR HEMOGLOBIN 37.3 pg (28.0-32.0); MEAN CORPUSCULAR VOLUME 118.8 fL (80.0-94.0); MEAN PLATELET VOLUME 10.1 fl (7.4-10.4); PLATELET 96 x1000/uL (130-400); RED BLOOD CELL COUNT 2.56 mill/uL (4.7-6.1); RED CELL DISTRIBUTION WIDTH 20.1 % (11.6-14.6)
[2021-07-27 08:00] VITALS: BP 106/45
[2021-07-27] MEDS: ASCORBIC ACID 500 MG TABLET PO SCH (08:29)
[2021-07-27] MEDS: GUAIFENESIN 600MG ER TABLET PO SCH (08:29)
[2021-07-27] MEDS: SPIRONOLACTONE 25MG TABLET PO SCH (08:29)
[2021-07-27] MEDS: FUROSEMIDE 40MG TABLET PO SCH (08:29)
[2021-07-27] MEDS: CYANOCOBALAMIN 100MCG TABLET PO SCH (08:29)
[2021-07-27] MEDS: FERROUS SULFATE 325MG TABLET PO SCH (08:29)
[2021-07-27] MEDS: ALLOPURINOL 100 MG TABLET PO SCH (08:29)
[2021-07-27] MEDS: DOCUSATE SODIUM SUGAR FREE 100MG/10ML UDC PO SCH (08:30)
[2021-07-27] MEDS: NYSTATIN POWDER 15GM TOP SCH ×2 (08:30→12:16)
[2021-07-27] MEDS: NEBIVOLOL HCL 5 MG TABLET PO SCH (08:30)
[2021-07-27 12:50] VITALS: BP 104/45
[2021-07-27 13:53] LABS: NUCLEATED RED BLOOD CELLS 2 /100 WBC; PLATELET ESTIMATE SLIGHTLY DECREASED
== END 2021-07-27 14:52 | disposition home health service (06) | DRG 535 ==
PROVIDERS: ADMIT Physical Medicine & Rehabilitation Spinal Cord Injury Medicine; ATTEND Family Medicine Adult Medicine
PROC: 5A1D70Z Performance of Urinary Filtration, Intermittent, Less than 6 Hours Per Day (ICD-10-PCS; principal; 2021-07-12)
PROC: 5A1D70Z Performance of Urinary Filtration, Intermittent, Less than 6 Hours Per Day (ICD-10-PCS; 2021-07-13)
PROC: 5A1D70Z Performance of Urinary Filtration, Intermittent, Less than 6 Hours Per Day (ICD-10-PCS; 2021-07-14)
PROC: 5A1D70Z Performance of Urinary Filtration, Intermittent, Less than 6 Hours Per Day (ICD-10-PCS; 2021-07-16)
PROC: 5A1D70Z Performance of Urinary Filtration, Intermittent, Less than 6 Hours Per Day (ICD-10-PCS; 2021-07-18)
PROC: 5A1D70Z Performance of Urinary Filtration, Intermittent, Less than 6 Hours Per Day (ICD-10-PCS; 2021-07-21)
PROC: 5A1D70Z Performance of Urinary Filtration, Intermittent, Less than 6 Hours Per Day (ICD-10-PCS; 2021-07-23)
PROC: 5A1D70Z Performance of Urinary Filtration, Intermittent, Less than 6 Hours Per Day (ICD-10-PCS; 2021-07-25)
PROC: 5A1D70Z Performance of Urinary Filtration, Intermittent, Less than 6 Hours Per Day (ICD-10-PCS; 2021-07-27)
DX: S72.141A Displaced intertrochanteric fracture of right femur, initial encounter for closed fracture (principal); N18.6 End stage renal disease; J96.01 Acute respiratory failure with hypoxia; J18.9 Pneumonia, unspecified organism; G92.8 Other toxic encephalopathy; I63.81 Other cerebral infarction due to occlusion or stenosis of small artery; J96.02 Acute respiratory failure with hypercapnia; I50.23 Acute on chronic systolic (congestive) heart failure; D61.818 Other pancytopenia; E87.2 Acidosis; I13.2 Hypertensive heart and chronic kidney disease with heart failure and with stage 5 chronic kidney disease, or end stage renal disease; I42.9 Cardiomyopathy, unspecified; I47.1 Supraventricular tachycardia; I48.20 Chronic atrial fibrillation, unspecified; J44.0 Chronic obstructive pulmonary disease with (acute) lower respiratory infection; E46 Unspecified protein-calorie malnutrition; E87.1 Hypo-osmolality and hyponatremia; I31.3 Pericardial effusion (noninflammatory); R53.81 Other malaise; D50.9 Iron deficiency anemia, unspecified; D53.9 Nutritional anemia, unspecified; E55.9 Vitamin D deficiency, unspecified; E78.5 Hyperlipidemia, unspecified; I25.10 Atherosclerotic heart disease of native coronary artery without angina pectoris; I71.2 Thoracic aortic aneurysm, without rupture; I95.1 Orthostatic hypotension; M10.9 Gout, unspecified; R26.89 Other abnormalities of gait and mobility; I27.21 Secondary pulmonary arterial hypertension; Z96.651 Presence of right artificial knee joint; C07 Malignant neoplasm of parotid gland; W01.0XXA Fall on same level from slipping, tripping and stumbling without subsequent striking against object, initial encounter; M51.26 Other intervertebral disc displacement, lumbar region; M19.90 Unspecified osteoarthritis, unspecified site; E87.5 Hyperkalemia; K59.00 Constipation, unspecified; I08.3 Combined rheumatic disorders of mitral, aortic and tricuspid valves; C62.90 Malignant neoplasm of unspecified testis, unspecified whether descended or undescended; R33.8 Other retention of urine; N40.1 Benign prostatic hyperplasia with lower urinary tract symptoms; Z99.2 Dependence on renal dialysis; Z92.3 Personal history of irradiation; Z90.49 Acquired absence of other specified parts of digestive tract; Z82.49 Family history of ischemic heart disease and other diseases of the circulatory system; Z79.01 Long term (current) use of anticoagulants; Z91.013 Allergy to seafood; Z88.1 Allergy status to other antibiotic agents; Z79.899 Other long term (current) drug therapy; Z80.42 Family history of malignant neoplasm of prostate; Z83.3 Family history of diabetes mellitus; Y93.01 Activity, walking, marching and hiking; Y92.89 Other specified places as the place of occurrence of the external cause; Y99.8 Other external cause status; Z68.25 Body mass index [BMI] 25.0-25.9, adult
CPT/HCPCS: 36415; 36600; 70551; 71045; 74018; 80048; 80053; 82140; 82375; 82607; 82728; 82746; 82805; 83036; 83540; 83550; 83735; 84100; 84134; 84439; 84443; 84481; 85025; 85044; 86376; 86705; 86709; 86803; 87340; 92523; 92610; 93005; 93880; 93970; 97110; 97116; 97163; 97166; 97530; 97535; A6261; J0885